=== PATIENT | female | born 1990 | race Caucasian/White ===

== ENCOUNTER 2023-02-01 11:49 | Outpatient (REF) | payer OTHER, SELFPAY ==
[2023-02-01 13:25] LABS: MANUAL DIFF FLAG NO
[2023-02-01 13:32] LABS: Appearance Urine Cloudy; Glucose Urine UA Negative (Negative); Leukocyte Esterase Urine Small (1+) (Negative); Nitrite Urine Negative (Negative); PH 5.5 (5.0-9.0); UMIC TRIGGER UACC YES; Urine Blood Large (3+) (Negative); Urine Ketones Trace mg/dL (Negative); Urine Protein 30 (1+) mg/dL (Neg-Trace)
[2023-02-01 13:34] LABS: Color Urine Yellow
[2023-02-01 13:35] LABS: Bacteria Urine 1+ (None Seen); Hyaline Casts Urine 0-2 /LPF (0-2); RBC Urine >20 /HPF (0-2); UACC Culture Trigger YES; WBC Urine 21-50 /HPF (0-5)
[2023-02-01 13:55] LABS: Basophils Percent Auto 0.7 % (0-2); Eosinophils Absolute Auto 0.1 X10*3/uL (0.0-0.4); Eosinophils Percent Auto 1.2 % (0-4); Hematocrit 37.9 % (37.0-47.0); Hemoglobin 12.1 g/dl (12.0-16.0); Imm Gran Abs Auto 0.01 X10*3/uL (0.00-0.03); Imm Gran Pct Auto 0.2 % (0.0-0.4); Lymphocytes Absolute Auto 2.1 X10*3/uL (1.2-4.9); Lymphocytes Percent Auto 36.5 % (20-40); Mean Corpuscular HGB Conc 31.9 g/dl (31.0-35.0); Mean Corpuscular Hemoglobin 24.8 pg (27.0-33.0); Mean Corpuscular Volume 77.8 fL (80.0-98.0); Mean Platelet Volume 10.1 fL (9.4-12.3); Monocytes Absolute Auto 0.3 X10*3/uL (0.1-1.2); Monocytes Percent Auto 5.9 % (2-11); Neutrophils Absolute Auto 3.2 x10*3/uL (2.0-8.3); Neutrophils Percent Auto 55.5 % (45-73); Platelet Count 266 X10*3/uL (160-400); Red Blood Count 4.87 X10*6/uL (4.20-5.50); Red Cell Distribution Width 13.2 % (11.0-16.0); White Blood Count 5.7 X10*3/uL (4.8-10.8)
[2023-02-01 14:58] LABS: Alanine Aminotransferase 7 U/L (0-31); Albumin Level 4.4 g/dL (3.5-5.0); Alkaline Phosphatase 96 U/L (39-117); Anion Gap 16 (12-20); Aspartate Amino Transferase 13 U/L (5-31); Bilirubin Total 0.4 mg/dL (0.0-1.0); Blood Urea Nitrogen 13 mg/dL (9-16); Calcium 9.8 mg/dL (8.4-10.2); Carbon Dioxide 25 mmol/L (22-29); Chloride 104 mmol/L (96-108); Cholesterol 235 mg/dL; Estimated Glomerular Filt Rate > 60; Glucose Fasting 82 mg/dL (60-99); HDL Cholesterol 49 mg/dL; LDL Cholesterol Calculated 146 mg/dl; Potassium 3.6 mmol/L (3.3-5.1); Sodium 141 mmol/L (135-145); Triglycerides 203 mg/dL
[2023-02-01 15:00] LABS: TSH reflex Free T4 0.95 uIU/mL (0.32-4.0)
== END 2023-02-01 11:50 | disposition home or self-care (01) ==
LOC: HO.HMGCLDS 11:49
PROVIDERS: PCP Nurse Practitioner Family; Visit Provider Nurse Practitioner Family
DX: Z00.00 Encounter for general adult medical examination without abnormal findings (principal)
CPT/HCPCS: 36415; 80053; 80061; 81001; 84443; 85025; 87086

== ENCOUNTER 2023-02-27 09:32 | Outpatient (REF) | payer OTHER, SELFPAY ==
--- NOTE | ~2023-02-27 | MR_ITS ---
EXAMINATION: MR BRAIN WITHOUT CONTRAST CLINICAL INFORMATION: Migraines. COMPARISON: None available. TECHNIQUE: Multiplanar, multisequence imaging of the brain was performed without contrast. FINDINGS: No diffusion abnormalities are identified to suggest an acute infarct. The ventricles are normal in size. No mass effect or midline shift is seen. No brain parenchymal signal abnormality is noted. No extra-axial fluid collections are seen. The brainstem and cerebellum are normal. There is a subcentimeter focus of susceptibility artifact in the anterior left frontal white matter on the gradient acquisition which corresponds to a faint 0.3 cm lesion with mild central T2 hyperintensity and a peripheral rim of low T2 signal, suspected to represent a cavernous malformation. The craniovertebral junction, marrow signal, and midline structures are normal. The major intracranial flow voids at the level of the [place] are preserved. The dural venous sinus flow voids are maintained. There is mild dependent mucosal thickening and a 2 cm retention cyst inferiorly in the left maxillary sinus. Trace mastoid effusions noted bilaterally as well. MR/MR head/brain wo con IMPRESSION: No acute intracranial process. Small focus of signal abnormality on gradient imaging which is suspected to be due to an incidental 0.3 cm cavernous malformation. Mild mucosal thickening and 2 cm retention cyst in the left maxillary antrum. Mild bilateral mastoid effusions.
== END 2023-02-27 09:33 | disposition home or self-care (01) ==
LOC: HO.MRI 09:32
PROVIDERS: PCP Nurse Practitioner Family; Visit Provider Nurse Practitioner Family
DX: G43.909 Migraine, unspecified, not intractable, without status migrainosus (principal)
CPT/HCPCS: 70551

== ENCOUNTER 2023-03-27 15:23 | Outpatient (AMB) | payer OTHER, SELFPAY ==
[2023-03-27 15:42] VITALS: BP 178/102; PULSE 85; O2SAT 100; BMI 33.1
--- NOTE | 2023-03-27 15:42 | A.OFFPC_ITS ---
Vital Signs 03/27/23 15:42 Height 5 ft 1 in Weight 175 lb 2 oz BMI 33.1 BP 178/102 H Blood Pressure Location Lt brachial Position Sitting Pulse 85 Pulse Source Pulse Oximeter Pulse Oximetry (%) 100 Oxygen Delivery Method Room Air Intake Visit Reasons: 4 month follow Up Allergies No Known Allergies Allergy (Verified 03/27/23 15:44) Tobacco use date assessed: 03/27/23 Dental Screening Dental Screen Date: 03/27/23 Did you have a dental visit in the last 12 months?: Yes Did you have a dental problem in the last 6 months where you did not have access to dental care?: No Was dental information given to patient?: Patient has dentist HPI 4 month follow Up HPI Details Pt's blood pressure is elevated. She reports that it is elevated at home as well (trending 140s-150s/90s). Will start losartan 25mg and hydrochlorothiazide 12.5mg. Denies chest pain, shortness of breath, headache, dizziness, and blurred vision. 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 Dom Gordon, Ally Morales, Henry Tolliver and colleagues, with an educational uzair from [employer]. Review of Systems Const Reports as per HPI Physical exam (Primary Care) Vital Signs: Last Vital Signs Pulse 85 03/27/23 15:42 BP 178/102 H 03/27/23 15:42 Pulse Ox 100 03/27/23 15:42 Oxygen Delivery Method Room Air 03/27/23 15:42 BMI result Body Mass Index 33.1 Tobacco/Smoking Status: Tobacco use Status Tobacco use date assessed 03/27/23 03/27/23 15:46 Patient Tobacco Use Status Former Tobacco user 03/27/23 15:46 Tobacco use type Cigarette 03/27/23 15:46 e-Cigarette/Vaping Use Never Used 03/27/23 15:46 Thrive Assessment: Date of Thrive Assessment Date Thrive assessed 11/22/22 03/27/23 15:46 Const General: cooperative Nutritional Appearance: obese Orientation/consciousness: patient oriented x3 Resp Effort & Inspection: normal respiratory effort Auscultation: clear to auscultation bilaterally Cardio Rate: regular rate Rhythm: regular rhythm Heart sounds: S1 normal heart sound present and S2 normal heart sound present Neuro General: patient oriented x3 Psych Appearance: grossly normal Mental Status: mental status grossly normal Speech and movement: Normal speech and movement present Affect: normal affect Attitude: cooperative Thought process: Normal thought process present Thought content: Normal thought content present Insight: Good insight present (Psych) Judgement: Good judgement present (Psych) Assessment and Plan Assessment & Plan (1) HTN (hypertension): Code(s): I10 - Essential (primary) hypertension Plan: Starting losartan and hctz, labs ordered Plan The patient agreed to the use of a biomedical engineering technician for this encounter. Scribed for JAZMIN Randhawa by Jasmina Cortez biomedical engineering technician, on 03/27/2023 at 15:55 EST. Orders: Orders TSH reflex Free T4 Today I10 - Essential (primary) hypertension Lipid Panel Today I10 - Essential (primary) hypertension Complete Blood Count Auto Diff Today I10 - Essential (primary) hypertension UA CC w/rflx Micro + Cult Today I10 - Essential (primary) hypertension Comprehensive [place]. Panel Fast Today I10 - Essential (primary) hypertension Medications: New hydrochlorothiazide 12.5 mg PO DAILY 30 tabs 3RF losartan 25 mg PO DAILY 30 days 30 tabs 2RF Coding Level of Care Code Est Pt Level 3 (15910) Diagnoses HTN (hypertension) I10
== END 2023-03-27 16:18 | disposition home or self-care (01) ==
PROVIDERS: Visit Provider Nurse Practitioner Family
DX: I10 Essential (primary) hypertension (principal)
CPT/HCPCS: 99213

== ENCOUNTER 2023-04-12 13:56 | Outpatient (AMB) | payer OTHER, SELFPAY ==
--- NOTE | 2023-04-12 14:10 | MHC.OFFWIV ---
Intake Vital Signs 04/12/23 14:11 Height 5 ft 1 in Weight 175 lb BMI 33.1 BP 152/80 H Blood Pressure Location Lt brachial Position Sitting Pulse 100 Pulse Source Pulse Oximeter Temp 97.6 F Temp Source Temporal Artery Scan Pulse Oximetry (%) 99 Intake Visit Reasons: EST/work sent her home for high BP Intake Note: Pt is here c/o high bp. Patient Tobacco Use Status: Former Tobacco user Quit Date: quit 10years ago Allergies No Known Allergies Allergy (Verified 04/12/23 14:10) Do you need a note to return to daycare/school/sports/work: Yes HPI HPI Comments History of Present Illness Details 33-year-old female who presents for high blood pressure. Patient states she was at work today was experiencing headache blood pressure was taken and found to be elevated 160s systolic she was told to come to the urgent care to get checked out. She endorses a headache that has been lingering most of the day as well as stressful day at work. She is newly diagnosed with high blood pressure has been recently started on medication for the last 2 weeks. 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 Current occupational exposures/hazards: Yes Cognitive needs: No Hearing needs: No Vision needs: No Review of Systems Const Reports headache(s) ENT Reports headache(s) Neuro Reports headache(s) Physical Exam Vital Signs: Last Vital Signs Temp 97.6 F 04/12/23 14:11 Pulse 100 04/12/23 14:11 BP 152/80 H 04/12/23 14:11 Pulse Ox 99 04/12/23 14:11 BMI result Body Mass Index 33.1 Const General: cooperative, no acute distress and alert Orientation/consciousness: patient oriented x3 Limitations: no limitations HEENT Head: Yes normal to inspection Ears: hearing grossly normal bilaterally and external ears normal General nose exam: Normal external nose present Eyes General: appearance normal, both eyes and all related structures Neck Neck: Yes normal visual inspection Chest Chest palpation & inspection: normal inspection of the chest Resp Effort & Inspection: normal respiratory effort, able to speak in complete sentences and no audible wheezes Auscultation: clear to auscultation bilaterally Cardio Rate: regular rate Rhythm: regular rhythm GI Inspection: Yes normal to inspection Palpation (GI): Soft to palpation and nontender Skin General skin exam: no rashes or lesions noted Neuro General: patient oriented x3 Psych Appearance: grossly normal Mental Status: mental status grossly normal Speech and movement: Normal speech and movement present Affect: normal affect Attitude: cooperative Thought process: Normal thought process present Thought content: Normal thought content present Assessment & Plan Assessment & Plan (1) HTN (hypertension): Code(s): I10 - Essential (primary) hypertension Qualifiers: Hypertension type: primary hypertension Qualified Code(s): I10 - Essential (primary) hypertension Plan: Upon arrival patient's blood pressure improved 150s systolic. Patient without any neurological deficits. Patient's elevated blood pressure likely secondary to patient's migraine which has been present all day as well as increased stress at work. Recommend symptomatic treatment using Motrin or Tylenol as well as rest. Given patient's newly started on blood pressure medicines been lost in 2 weeks will order making additional changes at this time Discharge instructions, follow up and treatment are discussed with patient in my usual fashion. Alternatives in treatment are also discussed. The patient will return for worsening symptoms or as needed. Advised that any labs/imaging ordered will be followed up on and contact made if further treatment needed. Counseled that patient's condition may require further evaluation and/or treatment. Symptoms of concern for worsening disorder discussed in detail in my customary manner. Patient does verbalize understanding of the plan, there are no apparent barriers to communication. The patient is given the opportunity to ask questions and have them answered to his/her satisfaction Coding Level of Care Code Est Pt Level 3 (75149) Diagnoses Primary hypertension I10 Hypertension type: primary hypertension
[2023-04-12 14:11] VITALS: BP 152/80; PULSE 100; TEMP 36.4; O2SAT 99; BMI 33.1
== END 2023-04-12 14:29 | disposition home or self-care (01) ==
PROVIDERS: PCP Nurse Practitioner Family; Visit Provider Physician Assistant
DX: I10 Essential (primary) hypertension (principal)
CPT/HCPCS: 99213

== ENCOUNTER 2023-06-15 14:53 | Outpatient (AMB) | payer OTHER, SELFPAY ==
--- NOTE | 2023-06-15 14:59 | MHC.OFFVIS ---
Intake Vital Signs 06/15/23 15:01 Height 5 ft 1 in Weight 168 lb 8 oz BMI 31.8 BP 100/70 Blood Pressure Location Lt brachial Position Sitting Pulse 88 Pulse Source Pulse Oximeter Pulse Oximetry (%) 100 Oxygen Delivery Method Room Air Intake Visit Reasons: INP- Migraines/Confirmed Intake Note: Pt presents today to establish care for migraines, pt states Migraines were every day until she began bp meds and meds helped her decrease to 3x a week. Pt states sxs include yazidism and back of head px and eye pain. Occ nausea . Migraine can last over an hour Allergies No Known Allergies Allergy (Verified 06/15/23 15:05) Medication List - Last Reconciled 06/15/23 by Marylou Randall, DATA REPORTING ANALYST hydrochlorothiazide 12.5 mg PO DAILY losartan 25 mg PO DAILY 30 days HPI HPI Comments History of Present Illness Details Left-handed 33-yr-old female presents for new pt evaluation of headache disorder. She has had headaches since menarche as a teenager. However, in the last 2-3 years, it has been becoming more intense and more frequent. Headache questionnaire: Preceding causes? None Previous work-up? 02/27/23, MR/MR head/brain wo con IMPRESSION: 1- No acute intracranial process. Small focus of signal abnormality on gradient imaging which is suspected to be due to an incidental 0.3 cm cavernous malformation. 2- Mild mucosal thickening and 2 cm retention cyst in the left maxillary antrum. Mild bilateral mastoid effusions. Typical headache characteristics: Prodrome symptoms? none Aura? sometiems floaters- fine, like lint Location, quality, characteristics? Sometimes eyes will hurt and vision will become blurry. Starts in her eyes, base of neck. Pressure pain. Pain intensity? 02/22 Associated symptoms? Photophobia, phonophobia, osmophobia, nausea, brain fog, fatigue Focal weakness, Parethesias, Autonomic s/s? none Postdrome? residual headaches Triggers? stress, not eating, poor sleep, weather changes Any positional, valsalva, exertional, sexual activity triggers? None Menstrual triggers? In the past. Time of day? Usually in the am Duration? A whole day Frequency? now 2-3 x's per week, prior to starting BP meds was daily How does headache impact your life? Tries not to miss work. Misses her social activities. Current acute medication use/interventions: Ibuprofen- takes the edge off Previous acute medication use: None Current preventative medication use: Starting HCTZ and losartan- has helped. Previous preventative medication use: None Non-pharmacological interventions: Rest History of musculoskeletal disorders or injury? None History of concussion/head injury? None History of mood disorder? None History of sleep disorder? Sleeps ok History of respiratory disease? None History of CV disease? HTN- recently dx'd History of coagulopathy? None History of endocrine or metabolic disease? None History of seizure? None History of GI disorder? None. Denies constipation Family planning? Currently trying to conceive Family history of migraine or other headache disorder? 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 Head: Yes normocephalic Resp Effort & Inspection: normal respiratory effort and able to speak in complete sentences Skin Other: Faint well-healed upper lip/mouth surgical scar Neuro General: patient oriented x3 Cranial nerves: Yes CN's II-XII intact bilaterally Cognition (Neuro): normal cognition Gait exam (Neuro): Normal gait present Motor exam (neuro): 5/5 motor strength present throughout Deep tendon reflexes (DTR's): Right triceps reflex intensity grade: 2+, Left triceps reflex intensity grade: 2+, Rt Biceps (C5, C6): 2+, Left biceps reflex intensity grade: 2+, Right brachioradialis reflex intensity grade: 2+, Left brachioradialis reflex intensity grade: 2+, Right patellar reflex intensity grade: 2+ and Left patellar reflex intensity grade: 2+ Coordination: [id number] test normal, tandem gait normal and Romberg test negative Pupils: Normal pupillary reactivity/response: bilateral Psych Appearance: grossly normal Mental Status: mental status grossly normal Speech and movement: Normal speech and movement present Affect: normal affect Attitude: cooperative Thought process: Normal thought process present Assessment & Plan Assessment & Plan (1) Migraine without aura: Code(s): G43.009 - Migraine without aura, not intractable, without status migrainosus (2) Patient desires : Code(s): Z31.9 - Encounter for procreative management, unspecified (3) HTN (hypertension): Code(s): I10 - Essential (primary) hypertension Qualifiers: Hypertension type: primary hypertension Qualified Code(s): I10 - Essential (primary) hypertension Plan For overall headache management: Discussed importance of good self-care, including but not limited to maintaining a healthy diet, adequate fluid intake, adequate sleep, and engaging in regular physical activity. For headache triggers: Track headaches, especially after any treatment regimen changes. Migraine [employer]ver[employer] is one of many headache tracking apps. Light sensitivity tips: Patient may try blue light filtering glasses, green glasses, green light therapy. For acute headache treatment: Discussed importance of taking acute medications at the first sign of headache, however stressed importance of avoiding acute medication overuse (especially with combined headache medications). Trial Sumatriptan 100mg tab, 1/2 - 1 tab (50-100mg) at onset of headache, may repeat in 2 hours. Max of 2 tabs (200mg) per 24 hours. May adjunct with OTC Tylenol 650mg q 4 hours, Ibuprofen 600mg q 6 hours, or Naproxen 440mg q 12 hrs prn. However, stop all NSAIDs upon . Reviewed potential adverse effects of triptans, including but not limited to nausea, fatigue, chest tightness/tingling (usually passes within a few minutes), medication overuse headaches. Previous acute migraine medication trials: Ibuprofen- not fully effective Acute migraine medication contraindications: avoid gepants d/t planning for For headache prevention medication: Discussed that preventative medications should be taken routinely as prescribed for best effect, it may take several weeks for full effect to take effect. Start Magnesium 400mg qhs Continue HCTZ Continue Losartan for now- will need to stop for . Consider switching to Propranol Er 60mg qhs- if OB is in agreement. Previous migraine prevention medication trials: None Migraine prevention medication contraindications: Would avoid TCAs, AEDs, CGRP MaBs- d/t desire for . Information also given on non-pharmacological interventions, such as Cefaly or Nerivio (which has safety data in ) neuromodulation devices. Pt to follow-up in 6-8 weeks or sooner prn. Medications: New sumatriptan succinate (0.5 - 1 x 100 mg) 50 - 100 mg orally at onset of headache, may repeat in 2 hrs PRN; max 2 tabs per day or 4 tabs/week (may take with Ibuprofen) 30 days 12 tabs 6RF migraine headache magnesium oxide may hold for loose stools 400 mg PO BEDTIME 30 days 30 tabs 6RF Coding Level of Care Code New Pt Level 4 (74380) Diagnoses Migraine without aura G43.009 Patient desires Z31.9 Primary hypertension I10 Hypertension type: primary hypertension
[2023-06-15 15:01] VITALS: BP 100/70; PULSE 88; O2SAT 100; BMI 31.8
== END 2023-06-15 16:04 | disposition home or self-care (01) ==
PROVIDERS: PCP Nurse Practitioner Family; Visit Provider Nurse Practitioner Family
DX: G43.009 Migraine without aura, not intractable, without status migrainosus (principal); Z31.9 Encounter for procreative management, unspecified; I10 Essential (primary) hypertension
CPT/HCPCS: 99204

== ENCOUNTER → 2023-06-15 14:53 | Outpatient (BNVA) | payer OTHER, SELFPAY | PROVIDERS: PCP Nurse Practitioner Family; Visit Provider Nurse Practitioner Family | DX: G43.009 Migraine without aura, not intractable, without status migrainosus (principal); Z31.9 Encounter for procreative management, unspecified; I10 Essential (primary) hypertension | CPT/HCPCS: 99202 ==

== ENCOUNTER 2023-06-18 15:13 | Outpatient (REF) | payer OTHER, SELFPAY ==
[2023-06-19 17:33] LABS: CT PCR NOT DETECTED (Not Detect.); NG PCR NOT DETECTED (Not Detect.)
[2023-06-20 14:21] LABS: BV Int Neg Control Negative (Negative); BV Int Pos Control Positive (Positive)
[2023-06-23 04:29] LABS: HPV mRNA E6/E7 rflx Not Detected (Not Detected)
== END 2023-06-18 15:14 | disposition home or self-care (01) ==
LOC: HO.LNP 15:13
PROVIDERS: PCP Nurse Practitioner Family; Visit Provider Advanced Practice Midwife
DX: Z01.419 Encounter for gynecological examination (general) (routine) without abnormal findings (principal); I10 Essential (primary) hypertension; G43.909 Migraine, unspecified, not intractable, without status migrainosus; Z11.3 Encounter for screening for infections with a predominantly sexual mode of transmission; Z79.899 Other long term (current) drug therapy
CPT/HCPCS: 0353U; 81025; 87480; 87510; 87624; 87660; 88142

== ENCOUNTER 2023-06-18 15:13 | Outpatient (AMB) | payer OTHER, SELFPAY ==
--- NOTE | 2023-06-18 15:18 | MHC.OFFVIS ---
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 She says she had positive HPV prior to the pandemic though she thinks she may have had a-1 after that. Her last appointments were where she used to live and that was before the pandemic. She has 2 children 1 of whom was age 12 both delivered vaginally in [place]. She says she did not have any problems in that . She says she was diagnosed with high blood pressure in the last year and has been on a couple of medications in the chart it says that she is on losartan and hydrochlorothiazide however she says that when she last called requesting refills she was told by the office that they did not want her taking the losartan anymore so she has not taken it past the need for refills which was a while ago. She says she saw a different doctor for migraines on Sunday and was prescribed 2 medications but she has not picked up the prescription yet. She is trying to watch her salt she does know that she is overweight she says her period is due tomorrow in she does have a feeling like it is going to come she sometimes gets bleeding when she has sex. Her is in the so that is why they have moved around. 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 She has the ability to exercise at home but she prefers walking. Patient states she has not used anything for contraception since her last child was born however was away for much of the time the only released recently started trying to get . 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 General: healthy appearing, comfortable, no acute distress, well developed and alert Nutritional Appearance: average body habitus Orientation/consciousness: patient oriented x3 Limitations: no limitations HEENT Head: Yes normocephalic Neck Neck: Yes normal visual inspection Thyroid: Thyroid normal Chest Chest palpation & inspection: normal inspection of the chest Breast/axilla inspection: normal inspection of the breasts and normal inspection of the axillae Breast/axilla palpation: normal palpation of the breasts and normal palpation of the axillae Resp Effort & Inspection: normal respiratory effort GI Inspection: Yes normal to inspection, No Abdominal wall edema and No distended Palpation (GI): Soft to palpation and nontender Other: Cervix multiparous with whitish discharge cervix bled briskly with 1st touch of Cytobrush. Pap done and testing for STIs done. Uterus small midposition mobile nontender. Fair tone with Kegel Kegel's taught. Adnexa not enlarged nontender. General: Yes bladder normal to palpation External Female Exam: normal external appearance and normal appearance of the urethra Speculum Exam - Vagina: normal appearance of the vagina, normal palpation and normal vaginal discharge Speculum Exam - Cervix: normal appearance of the cervix, normal palpation and nontender Bimanual exam- vagina & uterus: normal bimanual exam, normal palpation, uterine size normal, bladder normal to palpation, consistency normal, normal palpation, uterine mobility normal, uterine shape normal, No Cervical tenderness present, non-tender and no cervical motion tenderness Bimanual Exam- Adnexa, other: normal adnexae, no masses, normal and No adnexal tenderness Neuro General: patient oriented x3 Results AMB Test Urine AMB Test Urine Negative Last Edit by CHANO Suazo on 06/18/23 15:30 Assessment & Plan Assessment & Plan (1) HTN (hypertension): Code(s): I10 - Essential (primary) hypertension Qualifiers: Hypertension type: primary hypertension Qualified Code(s): I10 - Essential (primary) hypertension (2) Patient desires : Code(s): Z31.9 - Encounter for procreative management, unspecified (3) Migraines: Code(s): G43.909 - Migraine, unspecified, not intractable, without status migrainosus (4) Screening for cervical cancer: Comment: Patient states she has a history of HPV(? 2018). Pap done 06/18/2023, cervix very friable... Code(s): Z12.4 - Encounter for screening for malignant neoplasm of cervix Plan -----Discussed in this visit the following: healthy balanced diet, regular and consistent exercise, getting recommended health screens, doing the best she can for her particular health concerns, kegel exercises, pap smear screening and followup recommendations, mammography screening and SBE, normal changes in cycles in her life stage--- . Pap done will await the results and manage according to guidelines ----I discussed with pt some of the optimal strategies for planning a , including achieving the best health she can before , including heathy balanced diet, exercise, wt loss to ideal BMI if appropriate, avoiding toxic substances and medications, not smoking, and taking a multivitamin w folic acid daily. Any specific health concerns should be managed before seeking/ putting oneself at risk of pregancy. In her case I looked up recommendations for the medications she is on in well none would be medications of choice during losartan has a recommendation against use in 3 trimesters. She says she in fact is not taking it any longer. She has an appointment coming up with her primary care provider within the next couple of weeks and I recommend she share with them that she is considering getting and be clear about all meds she says she was told the medications for the migraines would be okay with getting . Also discussed my recommendations to try and lose weight before attempting it may also help with her blood pressure. Additionally if she does get she would be a high risk because of pre-existing hypertension and she should receive all care at [facility]. We will let her know by either call or letter the results of the Pap smear, but she may also call if she does not hear anything within the next month. Orders: Orders AMB HCG Urine Test Today Z32.02 - Encounter for test, result negative Bacterial Vaginosis Panel Today Z11.3 - Encounter for screening for infections with a predominantly sexual mode of transmission CT NG by PCR Today Z11.3 - Encounter for screening for infections with a predominantly sexual mode of transmission Pap Smear Today Z12.4 - Encounter for screening for malignant neoplasm of cervix Coding Level of Care Code New Pt Prev Care 18-39yr([id number] Diagnoses Primary hypertension I10 Hypertension type: primary hypertension Patient desires Z31.9 Migraines G43.909 Screening for cervical cancer Z12.4
[2023-06-18 15:19] VITALS: BP 146/94; BMI 32.1
== END 2023-06-18 16:09 | disposition home or self-care (01) ==
LOC: HO.HWS 15:13
PROVIDERS: PCP Nurse Practitioner Family; Visit Provider Advanced Practice Midwife
DX: Z01.419 Encounter for gynecological examination (general) (routine) without abnormal findings (principal); G43.909 Migraine, unspecified, not intractable, without status migrainosus; I10 Essential (primary) hypertension; Z32.02 Encounter for pregnancy test, result negative
CPT/HCPCS: 99385

== ENCOUNTER → 2023-08-06 07:56 | Outpatient (BNVA) | payer OTHER, SELFPAY | PROVIDERS: PCP Nurse Practitioner Family; Visit Provider Nurse Practitioner Family ==

== ENCOUNTER 2023-12-03 15:53 | Outpatient (AMB) | payer OTHER, SELFPAY ==
--- NOTE | 2023-12-03 16:03 | A.OFFPC_ITS ---
Vital Signs 12/03/23 16:05 Height 5 ft 1 in Weight 171 lb BMI 32.3 BP 120/80 Blood Pressure Location Rt brachial Position Sitting Pulse 84 Pulse Source Pulse Oximeter Pulse Oximetry (%) 98 Oxygen Delivery Method Room Air Intake Visit Reasons: Annual PE Intake Note: Patient here for physical exam. Pap: 2023 Allergies No Known Allergies Allergy (Verified 12/03/23 16:07) Tobacco use date assessed: 12/03/23 Dental Screening Dental Screen Date: 12/03/23 Did you have a dental visit in the last 12 months?: Yes Did you have a dental problem in the last 6 months where you did not have access to dental care?: No Was dental information given to patient?: Patient has dentist HPI Annual PE HPI Details Pt is here for a PE. Will order labs. Has a model maker firearms. Does report intermittent bleeding between periods. 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 1. Little interest or pleasure in doing things: not at all 2. Feeling down, depressed, or hopeless: not at all 3. Trouble falling or staying asleep, or sleeping too much: not at all 4. Feeling tired or having little energy: not at all 5. Poor appetite or overeating: not at all 6. Feeling bad about yourself - or that you are a failure or have let yourself or your family down: not at all 7. Trouble concentrating on things, such as reading the newspaper or watching television: not at all 8. Moving or speaking so slowly that other people could have noticed. Or the opposite - being so fidgety or restless that you have been moving around a lot more than usual: not at all 9. Thoughts that you would be better off or of hurting yourself in some way: not at all Total score: 0 Depression Screening Interpretation: Negative Depression Screening Done: Yes 66736 - PHQ-9 Billing: Yes Source: Developed by Drs. Dom Gordon, Ally Morales, Henry Tolliver and colleagues, with an educational uzair from [employer]. Thrive Questionnaire Date Thrive assessed: 12/03/23 I am a: Patient What is your living situation today?: I have a steady place to live Within the past 12 months, did the food you bought not last and you didn't have the money to get more?: Never true Within the past 12 months, did you worry whether your food would run out before you got money to buy more?: Never true Do you have trouble paying for medicines?: No Do you have trouble getting transportation to medical appointments?: No Do you have trouble paying your heating and electricity bill?: No Do you have trouble taking care of your child, family member or friend?: No Do you have trouble with day-to-day activities such as bathing, preparing meals, shopping, managing finances, etc.?: No Are you currently unemployed and looking for a job?: No Are you interested in more education?: No Currently or been in a relationship where the following occur: I choose not to answer this question THRIVE Score: 0 AUDIT C Alcohol Use Questionnaire (AUDIT-C) 1. How often do you have a drink containing alcohol?: Monthly or less 2. How many drinks containing alcohol do you have on a typical day when you are drinking?: 1 or 2 3. How often do you have six or more drinks on one occasion?: Never Total Score: 1 Score Reviewed/Action Taken: No PAUL-7 AMB Questionnaire PAUL-7 Date PAUL - 7 assessed: 12/03/23 Feeling nervous, anxious, or on edge: 0 = Not at all Not being able to stop or control worryin = Not at all Worrying too much about different things: 0 = Not at all Trouble relaxin = Not at all Being so restless that it is hard to sit still: 0 = Not at all Becoming easily annoyed or irritable: 0 = Not at all Feeling afraid as if something awful might happen: 0 = Not at all Total PAUL-7 score (0-4 normal; 5-9 mild; 10-14 moderate; 15-21 severe): 0 Source: Developed by Drs. Dom Gordon, Ally Morales, Henry Tolliver and colleagues, with an educational uzair from [employer]. PAUL-7 Assessment Billing PAUL-7 Assessment Tool: PAUL-7 Assessment 09890 Review of Systems Const Denies chills and Denies fever(s) Eyes Denies blurry vision ENT Denies vertigo, Denies dizziness and Denies sore throat Card Denies chest pain at rest, Denies chest pain with activity, Denies diaphoresis, Denies dyspnea and Denies dyspnea on exertion Resp Denies cough, Denies dyspnea, Denies dyspnea on exertion and Denies wheezing GI Denies abdominal pain, Denies melena, Denies hematochezia, Denies constipation, Denies diarrhea and Denies loose stools Denies hematuria Musc Denies numbness and Denies tingling Skin/Breast Denies lesions Neuro Denies vertigo, Denies dizziness, Denies numbness and Denies tingling Psych Denies anxiety, Denies depression, Denies homicidal ideation, Denies suicidal ideation and Denies other (substance abuse) Aller/Immun Denies wheezing Physical exam (Primary Care) Vital Signs: Last Vital Signs Pulse 84 12/03/23 16:05 BP 120/80 12/03/23 16:05 Pulse Ox 98 12/03/23 16:05 Oxygen Delivery Method Room Air 12/03/23 16:05 BMI result Body Mass Index 32.3 Tobacco/Smoking Status: Tobacco use Status Tobacco use date assessed 12/03/23 12/03/23 16:10 Patient Tobacco Use Status Former Tobacco user 12/03/23 16:05 Tobacco use type Cigarette 12/03/23 16:05 e-Cigarette/Vaping Use Never Used 12/03/23 16:05 Depression Screening Interpretation: Negative Thrive Assessment: Date of Thrive Assessment Date Thrive assessed 11/22/22 12/03/23 16:05 Currently or been in a relationship where the following occur: I choose not to answer this question Const General: cooperative Nutritional Appearance: well nourished Orientation/consciousness: patient oriented x3 HENMT Head: Yes normal to inspection, Yes normocephalic and Yes atraumatic Ears: TM's normal bilaterally Eyes General: appearance normal, both eyes and all related structures Alignment and Position: alignment normal and position normal Neck Neck: Yes normal visual inspection and Yes no lymphadenopathy Thyroid: Thyroid normal Resp Effort & Inspection: normal respiratory effort Auscultation: clear to auscultation bilaterally Cardio Rate: regular rate Rhythm: regular rhythm Heart sounds: S1 normal heart sound present, S2 normal heart sound present and no murmurs GI Palpation (GI): Soft to palpation and nontender Auscultation: normal bowel sounds Skin Rashes: no rashes Neuro General: patient oriented x3, moves all extremities, no focal motor deficits and deep tendon reflexes 2+ bilaterally Romberg Test: Negative Psych Appearance: grossly normal Mental Status: mental status grossly normal Speech and movement: Normal speech and movement present Affect: normal affect Attitude: cooperative Thought process: Normal thought process present Thought content: Normal thought content present Insight: Good insight present (Psych) Judgement: Good judgement present (Psych) Assessment and Plan Assessment & Plan (1) Physical exam: Code(s): Z. - Encounter for general adult medical examination without abnormal findings Orders: Orders Complete Blood Count Auto Diff Today Z00. - Encounter for general adult medical examination without abnormal findings Comprehensive [place]. Panel Fast Today Z00. - Encounter for general adult medical examination without abnormal findings UA CC w/rflx Micro + Cult Today Z00. - Encounter for general adult medical examination without abnormal findings Lipid Panel Today Z00. - Encounter for general adult medical examination without abnormal findings TSH reflex Free T4 Today Z00.00 - Encounter for general adult medical examination without abnormal findings Vitamin D 25-OH Total Today Z00.00 - Encounter for general adult medical examination without abnormal findings Coding Level of Care Code Est Pt Prev Care 18-39y([id number]) Diagnoses Physical exam Z. Additional Codes PAUL-7 Assessment Billing - PAUL-7 Assessment Tool: PAUL-7 Assessment 32167 ([id number])
[2023-12-03 16:05] VITALS: BP 120/80; PULSE 84; O2SAT 98; BMI 32.3
== END 2023-12-03 16:31 | disposition home or self-care (01) ==
PROVIDERS: Visit Provider Nurse Practitioner Family
DX: Z00.00 Encounter for general adult medical examination without abnormal findings (principal)
CPT/HCPCS: 99395

== ENCOUNTER 2023-12-19 13:47 | Outpatient (AMB) | payer OTHER, SELFPAY ==
[2023-12-19 14:20] VITALS: BP 122/70; BMI 31.9
--- NOTE | 2023-12-19 14:20 | A.OFFVIS_ITS ---
Vital Signs 12/19/23 14:20 Height 5 ft 1 in Weight 169 lb BMI 31.9 BP 122/70 Intake Visit Reasons: irregular menses Trip Motor Operator Required: No Information Interpreted: clinical only Air Traffic Instructor: Air Traffic Instructor Present Allergies No Known Allergies Allergy (Verified 12/19/23 14:21) Medication List - Last Reconciled 12/19/23 by Viviane Gutierrez CNM hydrochlorothiazide 12.5 mg PO DAILY Is last menstrual period known: Yes Last menstrual period: 12/14/23 HPI HPI irregular menses: Details: Patient is here because she is noticing that some months she spots in between this when she actually bled for about 3 days in looking back over her scheduled her cycle she did track the last 2 months and it did appear that it was in the middle of the 2 cycles. She says she gets monthly regular periods she thought they were more like every 28 days but the October 14 came on November 09 lasting to me and she had bleeding on November 27 -. Her most recent period started on December 13 and she is due and expects it to finish by tomorrow. She is mostly abstinent because her is deployed and void for months at a time so that is her method of control and otherwise these condoms. She also has been noticing that periods have gotten heavier dear much more like when she was a teenager her youngest child is 5 years old. She did have a Mirena meds 5 years and had no problems at all with it. 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 Current occupational exposures/hazards: Yes Cognitive needs: No Hearing needs: No Vision needs: No Female Reproductive History Menstrual Age of Menarche: 11 Duration of menses: 6-7 days Date of last menstrual period: 12/14/23 control method: none Total pregnancies: 2 Full term: 2 Date of last pap smear: 06/20/23 (negative) History of abnormal pap smear: Yes (2019 & 2021 abn.per patient) Physical Exam Vital Signs: Last Vital Signs BP 122/70 12/19/23 14:20 BMI result Body Mass Index 31.9 Other: External exam within vagina pink and moist normal menses present tiny clots evident cervix multiparous long close thick mobile nontender uterus midposition nontender adnexa nontender good tone w kegel. External Female Exam: normal external appearance Speculum Exam - Vagina: normal appearance of the vagina and normal vaginal discharge (Patient has very normal appearing menses multiparous cervix tiny li ttle zack) Speculum Exam - Cervix: normal appearance of the cervix Bimanual exam- vagina & uterus: normal bimanual exam, uterine size normal, consistency normal, uterine mobility normal, uterine shape normal and non-tender Bimanual Exam- Adnexa, other: normal adnexae, no masses and No adnexal tenderness Results Reviewed Results Reviewed: me: Kim Malone Age/Sex: 33/F Attending: Viviane Gutierrez CNM : 1990 Submitted by: Viviane Gutierrez CNM Copies to: Fernie Reynaga [facility] MR #: [id number] Status: [facility] REF Collected: 06/18/23 Location: [facility] Received: 06/20/23 Interpretation Satisfactory for evaluation. No endocervical cells seen. Blood. Negative for intraepithelial lesion or malignancy. HPV mRNA E6/E7: NOT DETECTED This assay detects E6/E7 viral messenger RNA (mRNA) from 14 high-risk HPV types (16, 18, 31, 33, 35, 39, 45, 51, 52, 56, 58, 59, 66, 68) HPV testing performed by [facility], [place], [place]. See reference laboratory portion of the EMR for entire report. Clinical Information LMP: 05/21/23 Previous PAP test: Unknown date/findings Material Received ThinPrep-Cervical Copies To Fernie Reynaga [employer] [facility] [address] [place], [place] [id number] [address] [place], [place] [id number] Electronically Signed By: NAVARRO Oreilly (ASCP) 06/25/23 1340 The Pap Test is a screening procedure with the inherent possibility of both false negative and false positive results. Results should be interpreted in the context of historic and current clinical findings. Reliability of the Pap Test is enhanced by performing the test on a regular repetitive basis. Patient: Kim Malone Age/Sex: 33/F MR#: [id number] Page 1 of 1 Assessment & Plan Assessment & Plan (1) Intermenstrual bleeding: Comment: Some months spotting last month it was more like bleeding. Code(s): N92.3 - Ovulation bleeding Category: Medical (2) Dysmenorrhea, unspecified: Code(s): N94.6 - Dysmenorrhea, unspecified Category: Medical (3) HTN (hypertension): Code(s): I10 - Essential (primary) hypertension Category: Medical Qualifiers: Hypertension type: primary hypertension Qualified Code(s): I10 - Essential (primary) hypertension (4) Screening for cervical cancer: Comment: Patient states she has a history of HPV(? 2018). Pap done 06/18/2023, cervix very friable=neg w neg hpv. Code(s): Z12.4 - Encounter for screening for malignant neoplasm of cervix Category: Medical Plan Testing for gonorrhea chlamydia trichomoniasis Gardnerella and Arielle done the patient is extremely low risk is not sexually active all previous testing was negative. Discussed possibility that it is perhaps screen version what some women experience with eating with ovulation she has not otherwise aware of ovulation so it is hard to titrate although looking back in the count the did appear that her last bleeding was midcycle so could be very much related. Discussed the think to validate this very to try to get an ultrasound around the time that she might be ovulating just to see if has sister would be found might lend some credence to this theory. 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 though the Mirena can have its own spotting side effect as well. Additionally discussed ordering a CBC to check for anemia as she says the periods have gotten heavier and TSH. She is in fact be getting fasting labs for her primary care provider and I checked in the system and those are among the labs he has ordered already so I will not reorder them. Orders: Orders CT NG by PCR Today Z87.42 - Personal history of other diseases of the female genital tract Bacterial Vaginosis Panel Today Z87.42 - Personal history of other diseases of the female genital tract US pelvic and transvaginal 10 Days N92.3 - Ovulation bleeding, N94.6 - Dysmenorrhea, unspecified Coding Level of Care Code Est Pt Level 3 (26289) Diagnoses Intermenstrual bleeding N92.3 Dysmenorrhea, unspecified N94.6 Primary hypertension I10 Hypertension type: primary hypertension Screening for cervical cancer Z12.4
== END 2023-12-19 15:15 | disposition home or self-care (01) ==
LOC: HO.HWSM 13:47
PROVIDERS: PCP Nurse Practitioner Family; Visit Provider Advanced Practice Midwife
DX: N92.3 Ovulation bleeding (principal); N94.6 Dysmenorrhea, unspecified; I10 Essential (primary) hypertension; Z12.4 Encounter for screening for malignant neoplasm of cervix
CPT/HCPCS: 99213

== ENCOUNTER 2023-12-19 13:47 | Outpatient (REF) | payer OTHER, SELFPAY ==
[2023-12-20 07:13] LABS: CT PCR NOT DETECTED (Not Detect.); NG PCR NOT DETECTED (Not Detect.)
[2023-12-20 11:05] LABS: Bacterial Vaginosis PCR NEGATIVE (Negative); Candida Group PCR NOT DETECTED (Not Detect); Candida glab krusei PCR NOT DETECTED (Not Detect); Trichomonas vaginalis PCR NOT DETECTED (Not Detect)
== END 2023-12-19 13:48 | disposition home or self-care (01) ==
LOC: HO.LAB 13:47
PROVIDERS: PCP Nurse Practitioner Family; Visit Provider Advanced Practice Midwife
DX: N92.3 Ovulation bleeding (principal); N94.6 Dysmenorrhea, unspecified; I10 Essential (primary) hypertension; Z87.42 Personal history of other diseases of the female genital tract
CPT/HCPCS: 0352U; 0353U; 99212

== ENCOUNTER 2024-07-03 08:19 | Outpatient (AMB) | payer OTHER, SELFPAY ==
--- NOTE | 2024-07-03 08:30 | MHC.OFFWIV ---
Intake Vital Signs 07/03/24 08:31 Height 5 ft 1 in Weight 172 lb BMI 32.5 BP 130/80 Blood Pressure Location Rt brachial Position Sitting Pulse 82 Pulse Source Pulse Oximeter Temp 98.8 F Temp Source Oral Pulse Oximetry (%) 100 Intake Visit Reasons: EP ?Ear infection Intake Note: Patient here for left ear pain that has been bothersome for a few days. Patient Tobacco Use Status: Former Tobacco user Allergies No Known Allergies Allergy (Verified 07/03/24 08:31) Do you need a note to return to daycare/school/sports/work: Yes HPI EP ?Ear infection HPI Details This note is constructed using voice recognition software. While every effort has been made to ensure accuracy, automation mechanic errors may have been included. The patient is a 34 year old female who presents to the clinic today with left ear pain for the past 2 days. She notes history of ear infections. She reports that about a week ago she had some blockage in the left ear, that seemed to improve it got worse again. She denies any difficulty hearing now. She does report a low-grade fever last night which he took Tylenol for which helped. She had the school nurse look at her ear yesterday, advised that there was redness. She denies cough, shortness of breath. 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 Current occupational exposures/hazards: Yes Cognitive needs: No Hearing needs: No Vision needs: No Female Reproductive History Menstrual Age of Menarche: 11 Review of Systems Const All systems reviewed & are unremarkable except as noted in HPI and below Physical Exam Vital Signs: Last Vital Signs Temp 98.8 F 07/03/24 08:31 Pulse 82 07/03/24 08:31 BP 130/80 07/03/24 08:31 Pulse Ox 100 07/03/24 08:31 BMI result Body Mass Index 32.5 Const General: cooperative, healthy appearing, comfortable and no acute distress Orientation/consciousness: patient oriented x3 HEENT Head: Yes normal to inspection, Yes No palpable skull fracture present and Yes normocephalic Ears: hearing grossly normal bilaterally, external ears normal, EAC's normal, mastoids normal (no TTP) bilaterally and TM abnormal (left with slight on right as well) bulging and erythematous General nose exam: Normal external nose present Face and sinus: Yes normal facial exam Mouth: Normal oral and palatal mucosa present Teeth and gingiva: dentition normal Throat: Yes posterior oropharynx normal Eyes General: appearance normal, both eyes and all related structures Neck Neck: Yes normal visual inspection, Yes full ROM, Yes no lymphadenopathy, Yes no meningeal signs, Yes trachea midline and Yes supple Resp Effort & Inspection: normal respiratory effort and able to speak in complete sentences Skin General skin exam: no rashes or lesions noted Neuro General: patient oriented x3 and no meningeal signs Assessment & Plan Assessment & Plan (1) Otitis media: Code(s): H66.90 - Otitis media, unspecified, unspecified ear Qualifiers: Otitis media type: suppurative Chronicity: acute Laterality: bilateral Recurrence: non-recurrent Spontaneous tympanic membrane rupture: without spontaneous rupture Qualified Code(s): H66.003 - Acute suppurative otitis media without spontaneous rupture of ear drum, bilateral Plan: Supportive measures encouraged and reviewed. Antibiotic sent to requested pharmacy, advised patient to take antibiotics until completed and not to stop if feeling better, unless the patient has side effects. Advised patient to follow up with primary care provider with worsening or failure to resolve. Plan See above for full details and plan. Medications: New amoxicillin-pot clavulanate 875-125 mg 1 tab PO BID 7 days 14 tabs 0RF Coding Level of Care Code Est Pt Level 3 (65614) Diagnoses Non-recurrent acute suppurative otitis media of both ears without spontaneous rupture of tympanic membranes H66.003 Otitis media type: suppurative Chronicity: acute Laterality: bilateral Recurrence: non-recurrent Spontaneous tympanic membrane rupture: without spontaneous rupture
[2024-07-03 08:31] VITALS: BP 130/80; PULSE 82; TEMP 37.1; O2SAT 100; BMI 32.5
== END 2024-07-03 09:27 | disposition home or self-care (01) ==
PROVIDERS: PCP Nurse Practitioner Family; Visit Provider Registered Nurse
DX: H66.003 Acute suppurative otitis media without spontaneous rupture of ear drum, bilateral (principal)

== ENCOUNTER → 2024-07-03 08:19 | Outpatient (BNVA) | payer OTHER, SELFPAY | PROVIDERS: PCP Nurse Practitioner Family; Visit Provider Registered Nurse | DX: H66.003 Acute suppurative otitis media without spontaneous rupture of ear drum, bilateral (principal) | CPT/HCPCS: 99212 ==

== ENCOUNTER 2025-01-24 09:48 | Outpatient (AMB) | payer OTHER, SELFPAY ==
[2025-01-24 10:13] VITALS: BP 110/80; PULSE 87; RESP 15; TEMP 36.8; O2SAT 100; BMI 33.3
--- NOTE | 2025-01-24 10:13 | MHC.OFFWIV ---
Intake Vital Signs 01/24/25 10:13 Height 5 ft 1 in Weight 176 lb BMI 33.3 BP 110/80 Blood Pressure Location Rt brachial Position Sitting Respiration 15 Pulse 87 Pulse Source Pulse Oximeter Temp 98.2 F Temp Source Oral Pulse Oximetry (%) 100 Oxygen Delivery Method Room Air Intake Visit Reasons: EP ? LT ear infection Intake Note: Pt is here today c/o Lt ear pain x3days Patient Tobacco Use Status: Former Tobacco user Allergies No Known Allergies Allergy (Verified 01/24/25 10:21) HPI EP ? LT ear infection HPI Details Patient is a 34-year-old female comes to the walk-in clinic complaining of left ear pain for the last few days. She does report having been swimming recently. She does also have a history of recurrent ear infections, and was referred to an ENT last year. She reports that she does not currently have dizziness fever and postnasal drip, or other respiratory symptoms or other significant associated symptoms. 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 Current occupational exposures/hazards: Yes Cognitive needs: No Hearing needs: No Vision needs: No Female Reproductive History Menstrual Age of Menarche: 11 Review of Systems Const All systems reviewed & are unremarkable except as noted in HPI and below Physical Exam Vital Signs: Last Vital Signs Temp 98.2 F 01/24/25 10:13 Pulse 87 01/24/25 10:13 Resp 15 01/24/25 10:13 BP 110/80 01/24/25 10:13 Pulse Ox 100 01/24/25 10:13 Oxygen Delivery Method Room Air 01/24/25 10:13 BMI result Body Mass Index 33.3 HEENT Ears: Abnormal EAC present (Edema and erythema) and TM abnormal erythematous, with fluid behind the TM and with loss of landmarks Assessment & Plan Assessment & Plan (1) Otitis media: Code(s): H66.90 - Otitis media, unspecified, unspecified ear Qualifiers: Laterality: left Otitis media type: suppurative Chronicity: acute Recurrence: recurrent Spontaneous tympanic membrane rupture: without spontaneous rupture Qualified Code(s): H66.005 - Acute suppurative otitis media without spontaneous rupture of ear drum, recurrent, left ear Plan Patient is a 34-year-old female with history of recurrent ear infections, who comes to the walk-in clinic with acute otitis media on the left side, with perforation. I explained to the patient of dry ear precautions, and advised her to follow up within 2 weeks if symptoms are persisting, or sooner if symptoms are worsening. She can follow up with primary care or she does have ENT. However she knows to go to the emergency department with worrisome symptoms. Medications: New ofloxacin 0.3% 5 drps otic (ears) BID 5 mL 0RF 5 days amoxicillin-pot clavulanate 875-125 mg 1 tab PO BID 14 tabs 0RF Coding Level of Care Code Est Pt Level 4 (36683) Diagnoses Recurrent acute suppurative otitis media without spontaneous rupture of left tympanic membrane H66.005 Laterality: left Otitis media type: suppurative Chronicity: acute Recurrence: recurrent Spontaneous tympanic membrane rupture: without spontaneous rupture
== END 2025-01-24 12:08 | disposition home or self-care (01) ==
PROVIDERS: PCP Nurse Practitioner Family; Visit Provider Physician Assistant Medical
DX: H66.005 Acute suppurative otitis media without spontaneous rupture of ear drum, recurrent, left ear (principal)

== ENCOUNTER → 2025-01-24 09:48 | Outpatient (BNVA) | payer OTHER, SELFPAY | PROVIDERS: PCP Nurse Practitioner Family; Visit Provider Physician Assistant Medical | DX: H66.005 Acute suppurative otitis media without spontaneous rupture of ear drum, recurrent, left ear (principal) | CPT/HCPCS: 99212 ==